=== PATIENT | female | born 1990 | race African-American/Black ===

== ENCOUNTER 2019-07-12 09:49 | Emergency (ER) | payer SELFPAY ==
[~2019-07-12] VITALS: Ht 160 cm; Wt 76.0 kg
[2019-07-12] MEDS ORDERED: LIDOCAINE HCL/PF 1% 10 MG/ML 5ML VIAL IJ ONE (14:00)
[2019-07-12] MEDS ORDERED: TETANUS, DIPHTHERIA, PERTUSSIS VAC/PF 0.5ML (>7YR OLD) IM ONE (14:30)
[2019-07-12] MEDS ORDERED: IBUPROFEN 800MG TABLET PO ONE (14:30)
[2019-07-12 14:56] VITALS: BP 141/100
== END 2019-07-12 15:34 | disposition home or self-care (01) ==
LOC: ER 09:49
DX: S61.216A Laceration without foreign body of right little finger without damage to nail, initial encounter (principal); W23.0XXA Caught, crushed, jammed, or pinched between moving objects, initial encounter; Y93.89 Activity, other specified; Y92.89 Other specified places as the place of occurrence of the external cause; Z23 Encounter for immunization; R03.0 Elevated blood-pressure reading, without diagnosis of hypertension
CPT/HCPCS: 12001; 73140; 90471; 90715; 99283; J3490

== ENCOUNTER 2019-07-20 17:05 | Emergency (ER) | payer SELFPAY ==
[~2019-07-20] VITALS: Ht 160 cm; Wt 68.0 kg
[2019-07-20 18:22] VITALS: BP 120/87
== END 2019-07-20 18:23 | disposition home or self-care (01) ==
LOC: ER 17:05
DX: S61.210D Laceration without foreign body of right index finger without damage to nail, subsequent encounter (principal); X58.XXXD Exposure to other specified factors, subsequent encounter
CPT/HCPCS: 99281

== ENCOUNTER 2024-05-05 11:05 | Emergency (ER) | payer MEDICAID ==
[~2024-05-05] VITALS: Ht 165.1 cm; Wt 46.0 kg
[2024-05-05 11:07] VITALS: BP 138/82; PULSE 92; RESP 16; TEMP 98.1; O2SAT 100
[2024-05-05] MEDS ORDERED: ONDA4TAB11 PO (11:39)
[2024-05-05] MEDS: ONDANSETRON 4MG ODT PO ONE (11:42)
== END 2024-05-05 11:50 | disposition home or self-care (01) ==
LOC: ER 11:05
DX: R11.10 Vomiting, unspecified (principal); Z88.5 Allergy status to narcotic agent
CPT/HCPCS: 99283; Q0162